=== PATIENT | male | born 1945 | race African-American/Black ===

== ENCOUNTER 2018-04-07 10:12 | Day surgery (SDC) | payer OTHER ==
[2018-03-31 10:53] LABS: HEMATOCRIT 43.6 % (37.9-51.0); MEAN CORPUSCULAR HEMOGLOBIN 31.1 pg (27.0-33.4); MEAN CORPUSCULAR HGB CONC 34.5 g/dL (32.0-36.0); MEAN CORPUSCULAR VOLUME 90 fl (80-97); PLATELET COUNT 183 10^3/uL (150-450); RED BLOOD COUNT 4.83 10^6/uL (4.35-5.55); RED CELL DISTRIBUTION WIDTH 13.3 % (11.5-14.0); WHITE BLOOD COUNT 5.1 10^3/uL (4.0-10.5)
[~2018-04-07 10:12] MED LIST: CEFAZOLIN 2 GM/D5W RTU 2 GM/50 ML RTUPB IV ONE; CEFAZOLIN 2 GM/D5W RTU 2 GM/50 ML RTUPB IV PRN; LACTATED RINGERS 1000 ML IV PRN; LIDOCAINE 0.5% INJ-PF (5 MG/ML) 50 ML SDV SUBCUT PRN
[2018-04-07] MEDS ORDERED: ONDANSETRON HCL INJ/PF 4 MG/2 ML SDV ONE (10:22)
[2018-04-07] MEDS ORDERED: PROPOFOL INJ 200 MG/20 ML VIAL IV ONE (10:22)
[2018-04-07] MEDS ORDERED: DEXAMETHASONE SOD PHOSPHATE INJ 4 MG/1 ML VIAL ONE (10:22)
[2018-04-07] MEDS ORDERED: MIDAZOLAM 2 MG/2 ML INJ ONE (10:22)
[2018-04-07] MEDS ORDERED: ACETAMINOPHEN 0 MG/0 ML RTUPB IV ONE (10:23)
[2018-04-07] MEDS ORDERED: ACETAMINOPHEN 1,000 MG/100 ML RTUPB IV ONE (11:17)
[2018-04-07 12:22] LABS: ANION GAP 7 (5-19); BLOOD UREA NITROGEN 12 mg/dL (7-20); CALCIUM 8.6 mg/dL (8.4-10.2); CARBON DIOXIDE 23 mmol/L (22-30); CHLORIDE 109 mmol/L (98-107); GLUCOSE 95 mg/dL (75-110); POTASSIUM 4.1 mmol/L (3.6-5.0); SODIUM 138.8 mmol/L (137-145)
--- NOTE | 2018-04-07 13:11 | EKG REPORT ---
SEVERITY:- DEFECTIVE ECG - SINUS RHYTHM PROBABLE POSTERIOR INFARCT : Confirmed by: Delio Aaron MD 07-Apr-2018 13:10:47
[2018-04-07] MEDS ORDERED: BUPIVACAINE HCL 0.5 % INJ/PF 30 ML SDV ONE (13:50)
[2018-04-07] MEDS ORDERED: VECURONIUM BROMIDE INJ 10 MG VIAL IV ONE (14:47)
[2018-04-07] MEDS ORDERED: SUCCINYLCHOLINE CHLORIDE INJ 200 MG/10 ML VIAL ONE (14:47)
[2018-04-07] MEDS ORDERED: DIPHENHYDRAMINE HCL 50 MG/ML VIAL IV PRN (17:17)
[2018-04-07] MEDS ORDERED: FENTANYL CITRATE INJ/PF 100 MCG/2 ML AMPUL IV PRN ×3 (17:17)
[2018-04-07] MEDS ORDERED: ONDANSETRON HCL INJ/PF 4 MG/2 ML SDV IV PRN (17:17)
[2018-04-07] MEDS ORDERED: MEPERIDINE HCL/PF INJ 25 MG/1 ML DISP.SYRIN IV PRN (17:17)
[2018-04-07] MEDS ORDERED: PROMETHAZINE HCL INJ 25 MG/1 ML VIAL IV PRN ×2 (17:17)
[2018-04-07] MEDS ORDERED: MORPHINE SULFATE 10 MG/ML INJ IV PRN (17:17)
[2018-04-07] MEDS ORDERED: SUGAMMADEX SODIUM 200 MG/2 ML SDV IV ONE (17:47)
[2018-04-07] MEDS: FENTANYL CITRATE INJ/PF 100 MCG/2 ML AMPUL ONE ×2 (18:23→18:28)
[2018-04-07] MEDS ORDERED: FENTANYL CITRATE INJ/PF 100 MCG/2 ML AMPUL ONE (18:24)
[2018-04-07] MEDS ORDERED: HYDROCODONE/ACETAMINOPHEN 10-325 MG TABLET PO PRN (20:15)
[2018-04-07 21:23] VITALS: BP 137/81
--- NOTE | 2018-04-13 08:51 | Operative Report ---
Nonrecallable Operative Report DATE OF SURGERY: 04/07/18 PREOPERATIVE DIAGNOSIS: Bilateral symptomatic inguinal hernias POSTOPERATIVE DIAGNOSIS: Bilateral indirect inguinal hernias, symptomatic OPERATION: Robot-assisted laparoscopic bilateral inguinal hernia repair with mesh. SURGEON: QUENTIN KLEIN 1ST AUTOGLAZIER: SANDY VARELA ANESTHESIA: GA TISSUE REMOVED OR ALTERED: None COMPLICATIONS: None apparent ESTIMATED BLOOD LOSS: Minimal PROCEDURE: Drains/implants: Right and left large 3 DMax inguinal hernia mesh. Procedure in detail: After informed consent was obtained, the patient was laid in the supine position. The area of the abdomen was prepped and draped in a normal sterile fashion. A 15 blade scalpel was used to create a supraumbilical incision. It was deepened using blunt means. The linea alba fascia was incised sharply, the abdomen was entered sharply. The balloon trocar was inserted, and pneumoperitoneum was achieved. Right and left sided 8 mm robotic trochars were placed under direct laparoscopic visualization. The patient was placed into the Trendelenburg position, and the robot was docked appropriately. I then assume my position at the surgeon's console. Attention was turned to the right groin. The peritoneum was scored 2-3 cm superior to the defect. The defect appeared to lie in the indirect space. The preperitoneal dissection was undertaken using sharp dissection, blunt dissection, and electrocautery. Once the hernia sac was freed from the cord structures a large 3 DMax inguinal hernia mesh was chosen to cover the defect adequately. Please note that the freeing of the hernia sac was done with great care, so as not to injure the cord structures. The hernia mesh was placed into the preperitoneal space. It was sutured medially and superiorly using 2-0 Vicryl suture. Next, the peritoneum was closed using V lock suture in simple running fashion. Attention was then turned to the left groin. The left groin, in turn was inspected. The defect was found to be in the indirect space. The peritoneum was scored 2-3 cm superior to the defect. A preperitoneal dissection was undertaken. This was done using sharp dissection, blunt dissection, and electrocautery. The hernia sac was dissected free of the cord structures. Great care was taken, so as not to injure the cord structures. Once the hernia was completely reduced, a large left-sided 3 DMax inguinal hernia mesh was placed into the preperitoneal space. It was sutured medially and superiorly. The peritoneum was then closed using V lock suture in simple running fashion. The repairs were then inspected and found to be in good order. The robot was then undocked. The trochars were removed, and pneumoperitoneum was relieved. The supraumbilical fascia was closed using 0 Vicryl suture in [id number] fashion. The overlying skin was closed using 4-0 Vicryl Rapide suture in subcuticular fashion. All sponge, instrument, and needle counts were correct 2. Condition: Stable. Sandy Varela PA-C was scrubbed and present the entirety of the procedure. She assisted with all portions of the procedure including placement of the trochars, docking of the robot, exchanging of the robotic instruments, closure of the fascia, and closure of the skin.
--- NOTE | 2018-04-13 08:51 | Discharge Summary ---
Discharge Summary (SDC) - Discharge Final Diagnosis: Bilateral indirect inguinal hernias Date of Surgery: 04/07/18 Condition: Good Forms: Discharge POC-Adult Referrals: [facility] [Provider Group] - 04/17/18 8:15 am Discharge Diet: As Tolerated Respiratory Treatments at Home: Deep Breathing/Coughing Discharge Activity: No Lifting Over 10 Pounds Home Care Assistance: None Needed Report the Following to Your Physician Immediately: Shortness of Breath, Nausea , Vomiting, Increase in Pain, Fever over 101 Degrees
== END 2018-04-07 21:56 | disposition home or self-care (01) ==
LOC: OROUT 10:12 → 2N 19:51 → OROUT 21:56
PROVIDERS: ATTEND Surgery
DX: K40.20 Bilateral inguinal hernia, without obstruction or gangrene, not specified as recurrent (principal); M54.9 Dorsalgia, unspecified; Z01.818 Encounter for other preprocedural examination
CPT/HCPCS: 86900; 86901; 36415 ×2; 86850; 85027; 80048; 93005; 93010; 49650; J2250; J3490 ×3; J1100; J3010; J0330; J2405; J2704; J0690; J0131; S2900